=== PATIENT | male | born 2000 | race Caucasian/White ===

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

== ENCOUNTER 2021-12-22 10:27 | Outpatient (CLI) | payer OTHER | END 2021-12-22 10:28 | disposition home or self-care (01) | LOC: NM 10:27 | PROVIDERS: ATTEND Internal Medicine | DX: K21.9 Gastro-esophageal reflux disease without esophagitis (principal); G80.9 Cerebral palsy, unspecified; R11.2 Nausea with vomiting, unspecified; R94.8 Abnormal results of function studies of other organs and systems | CPT/HCPCS: 78264; A9541 ==